=== PATIENT | female | born 1990 | race Caucasian/White ===

== ENCOUNTER 2023-06-01 09:53 | Emergency (ER) | payer BC, OTHER ==
--- NOTE | 2023-06-01 10:16 | ED ---
Recheck HPI - General Chief Complaint: Recheck/Abnormal Lab/Rx Stated Complaint: Elevated BP Time Seen by Provider: 06/01/23 10:03 Source: patient, RN notes reviewed Mode of arrival: ambulatory Limitations: no limitations - History of Present Illness Initial Comments: Patient is a 33-year-old female presenting to the ER with a chief complaint of hypertension. Patient was seen by PCP earlier this morning to be prescribed control and blood pressure was found to be elevated. Primary care physician sent her to ER for further evaluation. Patient is not taking any current antihypertensive medications. Patient denies any chest pain, shortness of breath, dizziness, lightheadedness, peripheral edema, urinary symptoms. - Related Data Home Medications Medication Instructions Recorded Confirmed Melatonin 5 mg PO HS PRN 05/14/14 02/29/16 Citalopram Hydrobromide [CeleXA] 40 mg PO DAILY 02/29/16 02/29/16 Previous Rx's Medication Instructions Recorded Azithromycin [Zithromax Z-pack (6 250 mg PO DIRECTED #6 tab 02/29/16 tabs)] Fluticasone Nasal [place] [Flonase 1 spray EA NOSTRIL DAILY PRN #1 02/29/16 Nasal [place]] bottle Allergies Allergy/AdvReac Type Severity Reaction Status Date / Time ibuprofen AdvReac Nausea & Verified 02/29/16 14:05 Vomiting Review of Systems ROS Statement: Those systems with pertinent positive or pertinent negative responses have been documented in the HPI. ROS Other: All systems not noted in ROS Statement are negative. Past Medical History Past Medical History: No Reported History Additional Past Medical History / Comment(s): GALLSTONES History of Any Multi-Drug Resistant Organisms: None Reported Past Surgical History: Adenoidectomy, Cholecystectomy, Tonsillectomy Past Anesthesia/Blood Transfusion Reactions: No Reported Reaction Past Psychological History: Anxiety, Depression Smoking Status: Former smoker Past Alcohol Use History: None Reported Past Drug Use History: None Reported General Exam Limitations: no limitations General appearance: alert, in no apparent distress Head exam: Present: atraumatic, normocephalic, normal inspection Eye exam: Present: normal appearance, PERRL, EOMI. Absent: scleral icterus, conjunctival injection, periorbital swelling ENT exam: Present: normal exam, normal oropharynx, mucous membranes moist, TM's normal bilaterally Neck exam: Present: normal inspection. Absent: tenderness, meningismus, lymphadenopathy Respiratory exam: Present: normal lung sounds bilaterally. Absent: respiratory distress, wheezes, rales, rhonchi, stridor Cardiovascular Exam: Present: regular rate, normal rhythm, normal heart sounds. Absent: systolic murmur, diastolic murmur, rubs, gallop, clicks Neurological exam: Present: alert, oriented X3, CN II-XII intact Psychiatric exam: Present: normal affect, normal mood Skin exam: Present: warm, dry, intact, normal color. Absent: rash Course Vital Signs 06/01/23 06/01/23 06/01/23 09:58 10:10 10:11 Temperature 98.4 F Pulse Rate 110 H Pulse Rate [ 107 H Pulse Oximetery ] Respiratory 16 Rate Blood Pressure 168/110 139/96 O2 Sat by Pulse 99 Oximetry 06/01/23 06/01/23 10:39 11:56 Temperature 97.9 F Pulse Rate 98 997 H Pulse Rate [ Pulse Oximetery ] Respiratory 18 Rate Blood Pressure 128/87 138/93 O2 Sat by Pulse 97 Oximetry Medical Decision Making - Medical Decision Making Was pt. sent in by a medical professional or institution (, PA, SSIS ARCHITECT, urgent care, hospital, or [facility]...) When possible be specific @ -No Did you speak to anyone other than the patient for history (EMS, parent, family, police, friend...)? What history was obtained from this source @ -No Did you review nursing and triage notes (agree or disagree)? Why? @ -I reviewed and agree with nursing and triage notes Were old charts reviewed (outside hosp., previous admission, EMS record, old EKG, old radiological studies, urgent care reports/EKG's, [facility] records)? Report findings @ -No old charts were reviewed Differential Diagnosis (chest pain, altered mental status, abdominal pain women, abdominal pain men, vaginal bleeding, weakness, fever, dyspnea, syncope, headache, dizziness, GI bleed, back pain, seizure, CVA, palpatations, mental health, musculoskeletal)? @ -Hypertension, hypertension emergency, hypertensive crisis, atypical chest pain this list is not meant to be all-inclusive. EKG interpreted by me (3pts min.). @ -As above X-rays interpreted by me (1pt min.). @ -None done CT interpreted by me (1pt min.). @ -None done U/S interpreted by me (1pt. min.). @ -None done What testing was considered but not performed or refused? (CT, X-rays, U/S, labs)? Why? @ -None What meds were considered but not given or refused? Why? @ -None Did you discuss the management of the patient with other professionals (professionals i.e. Dr., PA, SSIS ARCHITECT, lab, RT, psych nurse, social insurance adviser, waste elimination, teacher, lead security officer, case planner)? Give summary @ -No Was smoking cessation discussed for >3mins.? @ -No Was critical care preformed (if so, how long)? @ -No Were there social determinants of health that impacted care today? How? (Homelessness, low income, unemployed, alcoholism, drug addiction, transportation, low edu. Level, literacy, decrease access to med. care, fdc, rehab)? @ -No Was there de-escalation of care discussed even if they declined (Discuss DNR or withdrawal of care, Hospice)? DNR status @ -No What co-morbidities impacted this encounter? (DM, HTN, Smoking, COPD, CAD, Cancer, CVA, ARF, Chemo, Hep., AIDS, mental health diagnosis, sleep apnea, morbid obesity)? @ -Obese Was patient admitted / discharged? Hospital course, mention meds given and route, prescriptions, significant lab abnormalities, going to OR and other pertinent info. @ -Discharge. Patient is a 33-year-old female presenting to the ER with chief complaint of hypertension. Patient was sent in by PCP for further evaluation after in office BP was elevated. Upon evaluation as patient's blood pressure was 139/96. Patient was in no signs of acute distress and had no complaints at that time. EKG without signs of acute ischemia or infarct. Labs obtained in the ER unremarkable. Findings discussed with patient. Return parameters were discussed. Patient be discharged stable condition with follow-up to PCP. Patient expressed understanding and agreement with care plan. Undiagnosed new problem with uncertain prognosis? @ -No Drug Therapy requiring intensive monitoring for toxicity (Heparin, Nitro, Insulin, Cardizem)? @ -No Were any procedures done? @ -No Diagnosis/symptom? @ -Blood pressure check Acute, or Chronic, or Acute on Chronic? @ -Acute Uncomplicated (without systemic symptoms) or Complicated (systemic symptoms)? @ -Uncomplicated Side effects of treatment? @ -No Exacerbation, Progression, or Severe Exacerbation? @ -No Poses a threat to life or bodily function? How? (Chest pain, [place], [place], pneumonia, PE, COPD, DKA, ARF, appy, cholecystitis, CVA, Diverticulitis, Homicidal, Suicidal, threat to staff... and all critical care pts) @ -No - Lab Data Result diagrams: 06/01/23 10:56 06/01/23 10:56 Lab Results 06/01/23 06/01/23 Range/Units 10:56 10:56 WBC 9.7 (3.8-10.6) k/uL RBC 4.59 (3.80-5.40) m/uL Hgb 13.3 (11.4-16.0) gm/dL Hct 40.2 (34.0-46.0) % MCV 87.6 (80.0-100.0) fL MCH 29.0 (25.0-35.0) pg MCHC 33.1 (31.0-37.0) g/dL RDW 13.6 (11.5-15.5) % Plt Count 224 (150-450) k/uL MPV 8.3 Sodium 140 (137-145) mmol/L Potassium 4.4 (3.5-5.1) mmol/L Chloride 109 H (98-107) mmol/L Carbon Dioxide 20 L (22-30) mmol/L Anion Gap 11 mmol/L BUN 11 (7-17) mg/dL Creatinine 0.47 L (0.52-1.04) mg/dL Est GFR (CKD-EPI)AfAm >90 (>60 ml/min/1.73 sqM) Est GFR (CKD-EPI)NonAf >90 (>60 ml/min/1.73 sqM) Glucose 115 H (74-99) mg/dL Calcium 9.0 (8.4-10.2) mg/dL Total Bilirubin 0.6 (0.2-1.3) mg/dL AST 24 (14-36) U/L ALT 19 (4-34) U/L Alkaline Phosphatase 75 (38-126) U/L Total Protein 6.7 (6.3-8.2) g/dL Albumin 4.0 (3.5-5.0) g/dL - EKG Data -: EKG Interpreted by Me EKG Comments: EKG taken at 10: 27 shows sinus rhythm with no acute ST segment or T wave abnormalities. There is interventricular conduction delay. Ventricular rate 92, GA interval 157, QRS duration 168, QT/QTc 415/465. Disposition Clinical Impression: Blood pressure check Disposition: HOME SELF-CARE Condition: Stable Instructions (If sedation given, give patient instructions): Hypertension (ED) Additional Instructions: Please follow-up with PCP in the next 1 to 2 days. Return to ER for any new or worsening symptoms. Is patient prescribed a controlled substance at d/c from ED?: No Referrals: None,Stated [Primary Care Provider] - 1-2 days Time of Disposition: 11:49
[2023-06-01 11:20] LABS: HCT 40.2 % (34.0-46.0); HGB 13.3 gm/dL (11.4-16.0); MCHC 33.1 g/dL (31.0-37.0); MCV 87.6 fL (80.0-100.0); Mean Platelet Volume 8.3; Platelet Count 224 k/uL (150-450); RBC 4.59 m/uL (3.80-5.40); RDW 13.6 % (11.5-15.5); WBC 9.7 k/uL (3.8-10.6)
[2023-06-01 11:38] LABS: ALT 19 U/L (4-34); AST 24 U/L (14-36); African American GFR (CKD) >90 (>60 ml/min/1.73 sqM); Alkaline Phosphatase 75 U/L (38-126); Anion Gap 11 mmol/L; Blood Urea Nitrogen 11 mg/dL (7-17); Carbon Dioxide 20 mmol/L (22-30); Chloride 109 mmol/L (98-107); Glucose 115 mg/dL (74-99); Non-African American GFR(CKD) >90 (>60 ml/min/1.73 sqM); Potassium 4.4 mmol/L (3.5-5.1); Sodium 140 mmol/L (137-145); Total Bilirubin 0.6 mg/dL (0.2-1.3); Total Protein 6.7 g/dL (6.3-8.2)
[2023-06-01 12:26] VITALS: BP 138/93; PULSE 997; RESP 18; TEMP 97.9
== END 2023-06-01 11:59 | disposition home or self-care (01) ==
LOC: EC 09:53
DX: Z01.30 Encounter for examination of blood pressure without abnormal findings (principal); E66.9 Obesity, unspecified; F32.A Depression, unspecified; F41.9 Anxiety disorder, unspecified; Z79.899 Other long term (current) drug therapy; Z88.6 Allergy status to analgesic agent; Z87.891 Personal history of nicotine dependence; Z68.41 Body mass index [BMI] 40.0-44.9, adult
CPT/HCPCS: 36415; 80053; 85027; 93005; 99283

== ENCOUNTER → 2023-10-19 | Outpatient (CLI) | payer OTHER ==
--- NOTE | 2023-10-20 07:25 | CA ---
Transthoracic Echo Report Name: Jocelyne Echols Age: 33 Gender: F : 1990 Exam Date: 10/19/2023 14:55 Exam Location: [place] Echo Ht (in): 69 Wt (lb): 300 Ordering Physician: Ruddy Em DO Attending/Referring Phys: Kenyatta Gunn [facility] Shank Paperer Pamela Trevino RDCS Procedure CPT: Indications: R01.1 cardiac murmur Cardiac Hx: Technical Quality: Fair Contrast 1: Total Dose (mL): Contrast 2: Total Dose (mL): MEASUREMENTS (Male / Female) Normal Values 2D ECHO LV Diastolic Diameter PLAX 6.8 cm 4.2 - 5.9 / 3.9 - 5.3 cm LV Systolic Diameter PLAX 5.9 cm IVS Diastolic Thickness 0.9 cm 0.6 - 1.0 / 0.6 - 0.9 cm LVPW Diastolic Thickness 1.1 cm 0.6 - 1.0 / 0.6 - 0.9 cm LV Relative Wall Thickness 0.3 RV Internal Dim ED PLAX 3.2 cm LA Systolic Diameter LX 3.9 cm 3.0 - 4.0 / 2.7 - 3.8 cm LV Diastolic Volume MOD BP 190.6 cm??? 67 - 155 / 56 - 104 cm??? LV Systolic Volume MOD BP 132.8 cm??? 22 - 58 / 19 - 49 cm??? LV Ejection Fraction MOD BP 30.4 % >= 55 % LV Cardiac Index MOD BP 2300.4 cm???/min???m??? LV Diastolic Volume MOD 4C 206.3 cm??? LV Systolic Volume MOD 4C 158.8 cm??? LV Ejection Fraction MOD 4C 23.0 % LV Cardiac Index MOD 4C 1888.6 cm???/min???m??? LV Diastolic Length 4C 8.0 cm LV Systolic Length 4C 7.2 cm LV Diastolic Volume MOD 2C 202.1 cm??? LV Systolic Volume MOD 2C 146.5 cm??? LV Ejection Fraction MOD 2C 27.5 % LV Cardiac Index MOD 2C 2207.1 cm???/min???m??? LV Diastolic Length 2C 8.3 cm LV Systolic Length 2C 7.5 cm M-MODE Aortic Root Diameter MM 2.9 cm LA Systolic Diameter MM 2.1 cm LA Ao Ratio MM 0.7 DOPPLER AV Peak Velocity 151.5 cm/s AV Peak Gradient 9.2 mmHg MV Peak Velocity 201.0 cm/s MV Peak Gradient 16.2 mmHg MV Mean Velocity 88.6 cm/s MV Mean Gradient 4.4 mmHg MV Velocity Time Integral 29.8 cm MR Peak Velocity 450.4 cm/s MR Peak Gradient 81.1 mmHg Mitral E Point Velocity 166.5 cm/s Mitral A Point Velocity 55.4 cm/s Mitral E to A Ratio 3.0 MV Deceleration Time 97.2 ms MV E' Velocity 10.6 cm/s Mitral E to MV E' Ratio 15.7 TR Peak Velocity 269.2 cm/s TR Peak Gradient 29.0 mmHg Right Ventricular Systolic Press 39.0 mmHg FINDINGS Left Ventricle Left ventricular ejection fraction is estimated at 15-20 %. Mildly increased posterior wall thickness. Severely increased left ventricular diastolic diameter. Severely increased left ventricular diastolic volume. Severely increased left ventricular systolic volume. Severly decreased left ventricular ejection fraction. Right Ventricle Normal right ventricular size and function. Mild pulmonary hypertension. Right Atrium Normal right atrial size. No right atrial thrombus or mass seen. Left Atrium Mild LA enlargement no left atrial thrombus or mass present. Mitral Valve Structurally normal mitral valve. Moderate mitral regurgitation. Aortic Valve Trileaflet aortic valve. No aortic valve stenosis or regurgitation. Tricuspid Valve Structurally normal tricuspid valve. Mild tricuspid regurgitation. Pulmonic Valve Structurally normal pulmonic valve. Trace pulmonic regurgitation. Pericardium No pericardial effusion. Aorta Normal size aortic root and proximal ascending aorta. CONCLUSIONS Severely impaired LV function with EF between 15 to 20% Moderate mitral regurgitation Previewed by: Dr. Pritesh Price MD (Electronically Signed) Final Date: 20 October 2023 07:24
== END | disposition home or self-care (01) ==
LOC: RADECHMAIN 14:46
PROVIDERS: ATTEND Family Medicine
DX: I34.0 Nonrheumatic mitral (valve) insufficiency (principal); R01.1 Cardiac murmur, unspecified
CPT/HCPCS: 93306

== ENCOUNTER 2023-11-27 05:40 | Day surgery (SDC) | payer OTHER ==
[2023-11-23 15:38] VITALS: BMI 41.0
[~2023-11-27 05:40] MED LIST: ALPRAZolam 0.25 MG TAB PO PRN; ATORVASTATIN 80 MG TAB PO STA; NITROGLYCERIN SL TABS 0.4 MG TAB SUBLINGUAL PRN
[2023-11-27] MEDS: SODIUM CHLORIDE 0.9% 1,000 ML IV ONE (06:03)
[2023-11-27] MEDS: SODIUM CHLORIDE 0.9% 1,000 ML in EMPTY BAG 1 BAG IV SCH (06:13)
[2023-11-27] MEDS: ASPIRIN 325 MG TAB PO STA (06:13)
[2023-11-27] MEDS: ALPRAZolam 0.5 MG TAB PO PRN (06:14)
[2023-11-27 06:22] LABS: Glucose,Whole Blood 136 mg/dL (70-110)
[2023-11-27 06:28] LABS: Basophils # (A) 0.1 k/uL (0-0.2); Basophils % (A) 1 %; Eosinophils # (A) 0.2 k/uL (0-0.7); Eosinophils % (A) 2 %; HCT 45.9 % (34.0-46.0); HGB 14.7 gm/dL (11.4-16.0); Hypochromasia Slight; Lymphocytes # (A) 3.3 k/uL (1.0-4.8); Lymphocytes % (A) 33 %; MCV 87.4 fL (80.0-100.0); Mean Platelet Volume 7.8; Monocytes # (A) 0.4 k/uL (0-1.0); Monocytes % (A) 4 %; Neutrophils # (A) 5.9 k/uL (1.3-7.7); Neutrophils % (A) 59 %; Platelet Count 285 k/uL (150-450); RBC 5.25 m/uL (3.80-5.40); RDW 13.9 % (11.5-15.5)
[2023-11-27 06:29] VITALS: RESP 16; TEMP 98.6
[2023-11-27 06:42] LABS: African American GFR (CKD) >90 (>60 ml/min/1.73 sqM); Anion Gap 11 mmol/L; Blood Urea Nitrogen 14 mg/dL (7-17); Calcium 9.8 mg/dL (8.4-10.2); Carbon Dioxide 17 mmol/L (22-30); Chloride 110 mmol/L (98-107); Glucose 132 mg/dL (74-99); Non-African American GFR(CKD) >90 (>60 ml/min/1.73 sqM); Potassium 4.7 mmol/L (3.5-5.1); Sodium 138 mmol/L (137-145)
[2023-11-27] MEDS ORDERED: HEPARIN SODIUM 1,000 UN/ML (10ML VL) ONE (07:32)
[2023-11-27] MEDS: MIDAZOLAM 2 MG/2 ML VIAL IVP ONE (07:39)
[2023-11-27] MEDS: LIDOCAINE 1% INJ 10MG/ML (20 ML MDV) SQ ONE (07:39)
[2023-11-27] MEDS: VERAPAMIL SYRINGE (5 MG/10 ML) INTRAARTER ONE (07:43)
[2023-11-27] MEDS ORDERED: fentaNYL (PF) 50 MCG/ML 2 ML AMP ONE (07:44)
[2023-11-27] MEDS: fentaNYL (PF) 50 MCG/1 ML VIAL IVP ONE (07:47)
[2023-11-27] MEDS: HEPARIN SODIUM 1,000 UN/ML (10ML VL) IVP ONE (07:47)
[2023-11-27] MEDS: HEPARIN SODIUM,PORCINE 10,000 UNIT in SODIUM CHLORIDE 0.9% 1,000 ML IRRIGATION PRN (07:52)
[2023-11-27] MEDS: HEPARIN SODIUM,PORCINE (1 ML) 2,500 UNIT in SODIUM CHLORIDE 0.9% 250 ML IRRIGATION PRN (07:52)
[2023-11-27] MEDS ORDERED: RX INFO: IV CONTRAST WAS GIVEN 1 EACH MISC MISCELLANE PRN (07:57)
[2023-11-27] MEDS ORDERED: SODIUM CHLORIDE 0.9% 1,000 ML IV SCH (08:00)
[2023-11-27] MEDS: IOPAMIDOL-370 100ML BTL INJ ONE (08:03)
--- NOTE | 2023-11-27 08:03 | P.PCN ---
Date of Procedure: 11/27/23 Operative Findings: CARDIAC CATHETERIZATION PERFORMING PHYSICIAN: Pritesh Price MD, RPVI PROCEDURE PERFORMED: 1. Selective right and left coronary angiogram 2. Left heart catheterization 3. Ultrasound-guided access of the right radial artery INDICATION: Newly diagnosis cardiomyopathy COMPLICATION: None APPROACH: Right radial artery LEVEL OF SEDATION: Moderate with a sedation length of 16 minutes PROCEDURE DESCRIPTION: After obtaining an informed consent, the patient was brought to cardiac cork slabs sawyer. Local anesthesia was performed using lidocaine subcutaneously. The right radial artery was cannulated using Seldinger technique, the guidewire passed easily, following that we advanced a 5-Maldivian sheath dilator assembly, the wire and dilator were removed and sheath was flushed. Following that, 2 mg of verapamil along with 5000 unit heparin were given. Selective right and left coronary angiogram using a 6-Maldivian JR4 and JL 3.5 catheters. Following that we did left heart catheterization using 6-Maldivian pigtail catheter. The procedure was completed there was no complication. SELECTIVE CORONARY ANGIOGRAM: The right coronary artery: Large-caliber vessel a dominant vessel is angiographically normal but distally bifurcates into PDA and PLV branches Left main: Is angiographically normal The left circumflex: Large caliber vessel codominant vessel also appears to be angiographically normal and gives rise into an OM branch which seems to be normal The left anterior descending artery: Large-caliber vessel. The proximal LAD has disease appears to be in the range of 30 to 40%. The mid and distal LAD are angiographically normal. HEMODYNAMICS: The LVEDP was 23 mmHg with no significant gradient was identified across aortic valve CONCLUSION: 1. Mild to moderate nonobstructive CAD 2. Elevated left-sided filling pressure POSTPROCEDURE MANAGEMENT: Medical treatment
[2023-11-27 17:02] VITALS: BP 115/63; PULSE 87
== END 2023-11-27 12:37 | disposition home or self-care (01) ==
LOC: CATHCVL 05:40
PROVIDERS: ATTEND Internal Medicine Interventional Cardiology
DX: I42.9 Cardiomyopathy, unspecified (principal); I25.10 Atherosclerotic heart disease of native coronary artery without angina pectoris; I10 Essential (primary) hypertension; E66.3 Overweight; G47.30 Sleep apnea, unspecified; Z79.899 Other long term (current) drug therapy
CPT/HCPCS: 93458; 80048; 85025; 81025; 99152; C1769; C1894; J2250; J1644 ×3; J2001; Q9967; J3010

== ENCOUNTER 2024-10-08 11:29 | Inpatient (IN) | payer OTHER ==
[2024-10-04 11:55] VITALS: BMI 41.7
[~2024-10-08 11:29] MED LIST changes: -ALPRAZolam 0.25 MG TAB PO PRN; -ATORVASTATIN 80 MG TAB PO STA; +HYDROmorphone 0.5 MG/0.5 ML SYRINGE IVP PRN; +MIDAZOLAM 2 MG/2 ML VIAL IV PRN; -NITROGLYCERIN SL TABS 0.4 MG TAB SUBLINGUAL PRN
[2024-10-08 13:06] LABS: Basophils # (A) 0.05 10*3/uL (0.00-0.10); Basophils % (A) 0.5 %; Eosinophils # (A) 0.09 10*3/uL (0.04-0.35); Eosinophils % (A) 0.9 %; HCT 43.7 % (37.2-46.3); HGB 14.3 g/dL (12.0-15.0); Lymphocytes % (A) 22.7 %; MCH 29.3 pg (27.0-32.0); MCHC 32.7 g/dL (32.0-37.0); MCV 89.5 fL (80.0-97.0); Mean Platelet Volume 10.2 fL (9.5-12.2); Monocytes # (A) 0.51 10*3/uL (0.20-1.00); Neutrophils # (A) 7.16 10*3/uL (1.80-7.70); Neutrophils % (A) 70.6 %; Platelet Count 230 10*3/uL (140-440); RBC 4.88 10*6/uL (4.10-5.20); RDW 13.8 % (11.5-14.5); WBC 10.14 10*3/uL (4.50-10.00)
[2024-10-08 13:25] LABS: African American GFR (CKD) >90 (>60 ml/min/1.73 sqM); Anion Gap 9 mmol/L; Blood Urea Nitrogen 9 mg/dL (7-17); Calcium 9.7 mg/dL (8.4-10.2); Carbon Dioxide 26 mmol/L (22-30); Chloride 109 mmol/L (98-107); Glucose 104 mg/dL (74-99); Non-African American GFR(CKD) >90 (>60 ml/min/1.73 sqM); Sodium 144 mmol/L (137-145)
[2024-10-08 13:52] LABS: Potassium 4.7 mmol/L (3.5-5.1)
[2024-10-08] MEDS ORDERED: PROPOFOL 10 MG/ML 20 ML VIAL IV ONE (15:44)
[2024-10-08] MEDS ORDERED: fentaNYL (PF) 50 MCG/ML 2 ML AMP ONE (15:44)
[2024-10-08] MEDS ORDERED: PHENYLEPHRINE-0.9% NACL SYG 1,000 MCG/10 ML SYRINGE ONE (15:44)
[2024-10-08] MEDS ORDERED: MIDAZOLAM 2 MG/2 ML VIAL ONE (15:44)
[2024-10-08] MEDS ORDERED: ETOMIDATE 2 MG/ML 10 ML VIAL ONE (15:44)
[2024-10-08] MEDS: IV FLUID CONTINUATION 500 ML IV ONE (15:44)
[2024-10-08] MEDS: ceFAZolin 2 GM in DEXTROSE 5% IN WATER 50 ML IVPB PRN (16:22)
[2024-10-08] MEDS: ROPIVACAINE 5 MG/ML 30 ML VIAL MISCELLANE ONE (16:30)
[2024-10-08] MEDS: LIDOCAINE 1% INJ 10MG/ML (20 ML MDV) SQ ONE (16:30)
[2024-10-08] MEDS: ceFAZolin 1 GM in SODIUM CHLORIDE 0.9% IRRIG BTL 250 ML IRRIGATION PRN (16:33)
[2024-10-08] MEDS: HEPARIN SODIUM,PORCINE (1 ML) 2,500 UNIT in SODIUM CHLORIDE 0.9% 250 ML IRRIGATION ONE (16:35)
[2024-10-08] MEDS: LACTATED RINGERS 1,000 ML IV ONE (17:15)
--- NOTE | 2024-10-08 19:10 | P.EPPROC ---
- EP Procedure Note Electrophysiology Procedure Note: Diagnosis Cardiomyopathy, chronic, nonischemic, left ventricular ejection fraction 30-35%, no delayed enhancement on cardiac MRI Congestive heart failure [place] [employer] class 2 Wide QRS left bundle branch block morphology QRS width of, 81 ms, IA interval of 187 ms On guide line directed medical treatment for greater than 3 months Procedure: Biventricular ICD implantation for management of risk of sudden cardiac and congestive heart failure Result: Successful biventricular ICD implantation, chronic cobalt XT heart failure Atrial lead: 58 cm model #5076, P waves 2.1 mV pacing impedance 456 ohms and pacing threshold 0.5 V at 0.4 ms RV ICD lead: Single coil Medtronic ICD model number 6935M, 62 cm in length. R waves 15.6 mV, pacing impedance 456 ohms, high-voltage impedance 68 ohms and pacing threshold 0.5 V at 0.4 ms LB lead in LV port. Unipolar pacing impedance 634 ohms pacing threshold 0.5 V at 0.4 ms With unipolar left bundle pacing Right bundle branch block morphology of the paced beats. Activation time in V6 63 ms, activation time in lead 169 ms In comparison ring to coil pacing showed activation times of 135 ms in lead V6 and lead I Plan Increase metoprolol succinate to 50 mg twice daily to allow for preferential left ventricular activation with LB pacing continue other heart failure medications Procedure details: Patient was brought to the EP lab in a fasting state. Written informed consent was obtained prior to the procedure. Options, pros and cons, benefits and risks and complications discussed with patient in detail prior to the procedure (shared decision making) previously. Importance of continuing medical treatment emphasized previously. Alternatives discussed previously. Left upper extremity venogram performed. 15 mL IV dye injected in the left arm. Patent axillary/subclavian vein The left pectoral area was prepped and draped as a protocol. IV antibiotics administered 1% lidocaine was used for local anesthesia. A 4 cm incision was made parallel to the deltopectoral groove, about 1.5 cm medial to it. The in cision was carried down to the level of the pectoralis muscle and the subfascial pocket was made. Hemostasis was assured. The axillary vein access was obtained. Appropriately sized into to see sheaths were placed. ICD lead implanted in the right ventricle and screwed in. ICD lead tested for threshold, sensing, impedances and tested with high output pacing for diaphragmatic stimulation. Negative diaphragmatic stimulation Atrial lead placed in the right atrial appendage and tested for threshold, sensing, impedance, and tested with high output pacing. Phrenic nerve stimulation negative Left bundle lead placed successfully with right bundle branch block paced pattern with rapid activation time of 63 ms in V6 Leads secured to the underlying pectoral muscle after removing sheaths . Pocket irrigated with antibiotic solution. Antibiotic pouch placed Leads connected to the biventricular ICD generator. Wound closed in 3 layers and dressed per protocol Biventricular ICD interrogated and programmed. Appropriate pacing parameters, antitachycardia therapies with antitachycardia pacing cardioversion defibrillations programmed. AV delay and biventricular pacing parameters programmed to achieve optimal physiologic pacing Patient tolerated the procedure well without any acute complications. See scanned device report in EMR for lead details
--- NOTE | 2024-10-08 19:12 | P.PRLE ---
RE: EcholsJocelyne Dear Kenyatta Ms. Echols underwent biventricular ICD implantation for severe nonischemic cardiomyopathy despite medical treatment in the setting of a left bundle branch block pattern on twelve-lead EKG consistent with electromechanical dyssynchrony In order for the biventricular ICD to provide maximum benefit it is essential to slow down intrinsic AV node conduction to allow for preferential LV activation via the left bundle pacing lead. Therefore I have increased the dose of metoprolol succinate to 50 mg twice daily. She will continue all of her other medications as before. Thank you for entrusting me with the care of the patient Warm regards Sincerely Braydon Ace
[2024-10-08] MEDS: LACTATED RINGERS 1,000 ML IV SCH (21:14)
[2024-10-08] MEDS: SODIUM CHLORIDE 0.9% 1,000 ML IV SCH (21:14)
[2024-10-08] MEDS: ceFAZolin 2 GM in DEXTROSE 5% IN WATER 50 ML IVPB SCH (21:21)
[2024-10-08] MEDS: METOPROLOL SUCCINATE (ER) 50 MG TAB.ER.24H PO STA (21:22)
[2024-10-08] MEDS: SACUBITRIL/VALSARTAN 24 MG-26 MG TABLET PO SCH (21:22)
[2024-10-08] MEDS: ACETAMINOPHEN IV (For NPO) 1,000 MG in EMPTY BAG 1 BAG IVPB ONE (21:22)
[2024-10-09] MEDS: ACETAMINOPHEN TAB 325 MG TAB PO PRN (04:26)
--- NOTE | 2024-10-09 08:12 | XR ---
EXAMINATION TYPE: XR chest 2V DATE OF EXAM: 10/09/2024 7:08 AM COMPARISON: None CLINICAL INDICATION: Female, 34 years old with history of Lead placement check; [facility] TECHNIQUE: XR chest 2V Frontal and lateral views of the chest. FINDINGS: Lungs/Pleura: There is no evidence of pleural effusion, focal consolidation, or pneumothorax. Pulmonary vascularity: Unremarkable. Heart/mediastinum: Cardiomediastinal silhouette is unremarkable. Three lead cardiac conduction device overlying the left hemithorax with lead tips projecting over the right ventricle, right atrium and c oronary sinus. Musculoskeletal: No acute osseous pathology. Other findings: None IMPRESSION: No acute cardiopulmonary disease/process. [facility], , 10/09/2024 8:10 AM
[2024-10-09] MEDS: SPIRONOLACTONE 25 MG TAB PO SCH (08:42)
[2024-10-09] MEDS: SERTRALINE 100 MG TAB PO SCH (08:42)
[2024-10-09] MEDS: METOPROLOL SUCCINATE (ER) 100 MG TAB.ER.24H PO SCH (08:42)
[2024-10-09] MEDS: DAPAGLIFLOZIN PROPANEDIOL 5 MG TABLET PO SCH (08:42)
[2024-10-09] MEDS ORDERED: METOPROLOL SUCCINATE (ER) 50 MG TAB.ER.24H PO SCH (09:00)
[2024-10-09 14:56] LABS: Basophils # (A) 0.04 10*3/uL (0.00-0.10); Basophils % (A) 0.4 %; Eosinophils # (A) 0.04 10*3/uL (0.04-0.35); Eosinophils % (A) 0.4 %; HCT 41.8 % (37.2-46.3); HGB 13.5 g/dL (12.0-15.0); Lymphocytes # (A) 2.16 10*3/uL (0.90-5.00); Lymphocytes % (A) 20.1 %; MCH 29.3 pg (27.0-32.0); MCHC 32.3 g/dL (32.0-37.0); MCV 90.7 fL (80.0-97.0); Mean Platelet Volume 10.3 fL (9.5-12.2); Monocytes # (A) 0.55 10*3/uL (0.20-1.00); Monocytes % (A) 5.1 %; Neutrophils # (A) 7.93 10*3/uL (1.80-7.70); Neutrophils % (A) 73.7 %; Platelet Count 211 10*3/uL (140-440); RBC 4.61 10*6/uL (4.10-5.20); RDW 13.8 % (11.5-14.5); WBC 10.75 10*3/uL (4.50-10.00)
[2024-10-09 15:07] LABS: African American GFR (CKD) >90 (>60 ml/min/1.73 sqM); Anion Gap 9 mmol/L; Blood Urea Nitrogen 6 mg/dL (7-17); Calcium 9.6 mg/dL (8.4-10.2); Carbon Dioxide 22 mmol/L (22-30); Chloride 108 mmol/L (98-107); Glucose 106 mg/dL (74-99); Non-African American GFR(CKD) >90 (>60 ml/min/1.73 sqM); Sodium 139 mmol/L (137-145)
[2024-10-09] MEDS: SODIUM CHLORIDE 0.9% 1,000 ML IV SCH (17:06)
--- NOTE | 2024-10-09 18:46 | CA ---
Transthoracic Echo Report Name: Jocelyne Echols Age: 34 Gender: F : 1990 Exam Date: 10/09/2024 14:23 Exam Location: [place] Echo Ht (in): 70 Wt (lb): 285 Ordering Physician: Braydon Ace MD ([id number]) Attending/Referring Phys: Plan Examiner Pamela Trevino RDCS Procedure CPT: Indications: pericardial effusion Cardiac Hx: Technical Quality: Technically difficult study Contrast 1: Definity Total Dose (mL): 2 Contrast 2: Total Dose (mL): MEASUREMENTS (Male / Female) Normal Values 2D ECHO LV Diastolic Diameter PLAX 5.2 cm 4.2 - 5.9 / 3.9 - 5.3 cm LV Systolic Diameter PLAX 3.8 cm IVS Diastolic Thickness 1.2 cm 0.6 - 1.0 / 0.6 - 0.9 cm LVPW Diastolic Thickness 1.2 cm 0.6 - 1.0 / 0.6 - 0.9 cm LV Relative Wall Thickness 0.5 RV Internal Dim ED PLAX 3.7 cm LA Systolic Diameter LX 4.0 cm 3.0 - 4.0 / 2.7 - 3.8 cm LV Diastolic Volume MOD BP 159.4 cm??? 67 - 155 / 56 - 104 cm??? LV Systolic Volume MOD BP 107.3 cm??? - / 19 - 49 cm??? LV Ejection Fraction MOD BP 32.7 % >= 55 % LV Cardiac Index MOD BP 1271.1 cm???/min???m??? LV Diastolic Volume MOD 4C 153.4 cm??? LV Systolic Volume MOD 4C 110.2 cm??? LV Ejection Fraction MOD 4C 28.2 % LV Cardiac Index MOD 4C 1054.7 cm???/min???m??? LV Diastolic Length 4C 8.1 cm LV Systolic Length 4C 7.7 cm LV Diastolic Volume MOD 2C 166.1 cm??? LV Systolic Volume MOD 2C 98.2 cm??? LV Ejection Fraction MOD 2C 40.9 % LV Cardiac Index MOD 2C 1656.6 cm???/min???m??? LV Diastolic Length 2C 8.1 cm LV Systolic Length 2C 7.1 cm LA Volume 90.0 cm??? - / 22 - 52 cm??? LA Volume Index 34.8 cm???/m??? 16 - 28 cm???/m??? M-MODE Aortic Root Diameter MM 3.2 cm LA Systolic Diameter MM 4.6 cm LA Ao Ratio MM 1.4 AV Cusp Separation MM 2.2 cm DOPPLER AV Peak Velocity 146.1 cm/s AV Peak Gradient 8.5 mmHg FINDINGS Left Ventricle Left ventricular ejection fraction is estimated at 30-35 %. Left ventricular cavity size normal. Mildly increased left ventricular wall thickness. Severe global hypokinesis Right Ventricle Right ventricular dilatation. Unable to estimate the right ventricular systolic pressure. A wire is noted in the right ventricle Right Atrium Right atrium not well visualized. Left Atrium Mildly increased left atrial diameter. Moderately increased left atrial volume. Mildly increased left atrial area. No left atrial thrombus or mass present. Mitral Valve Structurally normal mitral valve. No evidence for mitral valve prolapse. No mitral stenosis. Mild mitral regurgitation. Aortic Valve Aortic valve not well visualized. No aortic valve stenosis or regurgitation. Tricuspid Valve Tricuspid valve not well visualized. Mild tricuspid regurgitation. Pulmonic Valve Pulmonic valve not well visualized. No pulmonic regurgitation. Pericardium No pericardial effusion. Aorta Normal size aortic root and proximal ascending aorta. CONCLUSIONS Technically difficult study. Definity ECHO contrast used for improved visualization of the endocardial borders (inadequate visualization of two or more contiguous segments). Severe global hypokinesis of the left ventricle Limited Doppler study with mild mitral and tricuspid regurgitation No evidence of pericardial effusion Previewed by: Dr. Neeraj Solorzano MD (Electronically Signed) Final Date: 09 October 2024 18:46
[2024-10-09] MEDS: METOPROLOL SUCCINATE (ER) 50 MG TAB.ER.24H PO SCH (21:20)
[2024-10-10] MEDS: MELATONIN 3 MG TABLET PO SCH (02:47)
[2024-10-10 06:24] LABS: Glucose,Whole Blood 113 mg/dL (70-110)
[2024-10-10] MEDS: VANCOMYCIN 1,250 MG in SODIUM CHLORIDE 0.9% 250 ML IVPB STA (13:53)
[2024-10-10] MEDS: IOPAMIDOL-370 100ML BTL INJ ONE (14:53)
[2024-10-10] MEDS: IV FLUID CONTINUATION 1,000 ML IV ONE (15:52)
[2024-10-10] MEDS ORDERED: ROCURONIUM 10 MG/ML (5 ML VIAL) IV ONE (16:29)
[2024-10-10] MEDS ORDERED: NEOSTIGMINE 1 MG/ML 10 ML VIAL ONE (16:29)
[2024-10-10] MEDS ORDERED: PROPOFOL 10 MG/ML 20 ML VIAL IV ONE (16:29)
[2024-10-10] MEDS ORDERED: HYDROmorphone (PF) 1 MG/ML ONE (16:29)
[2024-10-10] MEDS ORDERED: SUCCINYLCHOLINE CHLORIDE 200 MG/10 ML VIAL IV ONE (16:29)
[2024-10-10] MEDS ORDERED: LIDOCAINE 1% INJ 10MG/ML (20 ML MDV) ONE (16:29)
[2024-10-10] MEDS ORDERED: MIDAZOLAM 2 MG/2 ML VIAL ONE (16:29)
[2024-10-10] MEDS ORDERED: fentaNYL (PF) 50 MCG/ML 2 ML AMP ONE (16:29)
[2024-10-10] MEDS ORDERED: ePHEDrine 50 MG/ML 1 ML VIAL ONE (16:29)
[2024-10-10] MEDS ORDERED: PHENYLEPHRINE-0.9% NACL SYG 1,000 MCG/10 ML SYRINGE ONE (16:29)
[2024-10-10] MEDS ORDERED: GLYCOPYRROLATE 0.2 MG/ML 2 ML VIAL ONE (16:29)
[2024-10-10] MEDS: WATER IVPB ONE (17:10)
[2024-10-10] MEDS: CEFAZOLIN IVPB ONE (17:10)
[2024-10-10] MEDS: DEXTROSE 5% IVPB ONE (17:10)
[2024-10-10] MEDS: LIDOCAINE 1% INJ 10MG/ML (20 ML MDV) SQ ONE (17:20)
[2024-10-10] MEDS: ROPIVACAINE 5 MG/ML 30 ML VIAL MISCELLANE ONE (17:20)
[2024-10-10] MEDS ORDERED: ACETAMINOPHEN TAB 325 MG TAB PO PRN (18:32)
--- NOTE | 2024-10-10 18:46 | P.EPPROC ---
- EP Procedure Note Electrophysiology Procedure Note: Diagnosis Significant lead pull with dislodgment of the atrial lead Significant lead pull with complete dislodgment of the ICD lead Status post implant of a biventricular ICD 2 days back for severe nonischemic cardiomyopathy, left bundle branch block pattern on twelve-lead EKG and congestive heart failure, on guideline directed medical treatment Details Patient was brought to the EP lab in a fasting state. Written informed consent was obtained prior to the procedure. IV vancomycin was administered prior to the procedure. General anesthesia was provided. The left pectoral area was prepped and draped as a protocol. 1% lidocaine was used for local anesthesia. Subsequently Was Given. An Incision Was Made Directly of the Previous Surgical Site and Carried down to the Level of the Generator. The Generator Was Explanted All Leads Were Securely Sutured to the Pectoralis Muscle. Cinefluoroscopy Revealed That the Right Atrial Lead Was Free-Floating in the Right Atrium and the ICD Lead Was Also Free-Floating in the Right Ventricle. As Compared to Yesterday's Cinefluoroscopy and Today Cinefluoroscopy There Was a Big Difference in the RV Lead Position Consistent with a Completely Free-Floating ICD Lead The Left Bundle Lead Appeared Secure and Thresholds Were Excellent and the Heel Was Adequate. Therefore the Left Bundle Lead Was Left Untouched The Right Atrial Lead Was Freed, Unscrewed and Then Repositioned with Excellent P Waves of between 3 to 5 mV with Good Current of Injury and Appears Impedance of 418 Ohms and Pacing Threshold of 0.75 V at 0.4 Ms. Adequate Heel Was Provided in the Right Atrium. The ICD Lead Was Freed from the Pectoralis Muscle, Unscrewed and Then Repositioned in the Low RV Septum. Excellent Current of Injury, R Waves 20 mV, Pace Impedance 494 Ohms and High-Voltage Impedance 67 Ohms. Threshold 0.75 V at 0.4 Ms. Amarilis Test Is Negative for Both Leads The Left Bundle Lead Was Then Interrogated and Right Bundle Branch Block Pattern of the Paced Beat Was Obtained with an Activation Time in Lead V6 of 65 ms The heel seemed adequate and therefore this lead was not touched The pocket was irrigated with antibiotic solution and new antibiotic pouch was placed the leads and the generator was in place and subfascial pocket A tug test was performed at the level of the pectoralis muscle suture and for the connection with the ICD lead. The ICD was secured to the pectoralis muscle with nonabsorbable suture. The wound was closed in 3 layers and dressed per protocol The arm was then secured with an orthopedic sling patient tolerated procedure well without any acute complication
[2024-10-10] MEDS: ACETAMINOPHEN IV (For NPO) 1,000 MG in EMPTY BAG 1 BAG IVPB ONE (20:54)
[2024-10-10] MEDS: METOPROLOL SUCCINATE (ER) 100 MG TAB.ER.24H PO SCH (22:01)
[2024-10-10] MEDS: DIGOXIN 125 MCG TAB PO SCH (22:01)
[2024-10-10] MEDS: ceFAZolin 2 GM in DEXTROSE 5% IN WATER 50 ML IVPB SCH (22:08)
[2024-10-11 02:03] VITALS: RESP 18
[2024-10-11 07:55] VITALS: BP 125/73; PULSE 60; TEMP 98.4
[2024-10-11] MEDS: SODIUM CHLORIDE 0.9% 1,000 ML IV SCH (09:06)
--- NOTE | 2024-10-11 10:54 | P.DS ---
Providers Date of admission: 10/08/24 11:30 Attending physician: Braydon Ace Primary care physician: [facility] Course: Patient is resting comfortably in bed today No chest discomfort dizziness or lightheadedness The local ICD site is healed well She was admitted for management of severe cardiomyopathy heart failure and left bundle branch block pattern on twelve-lead EKG and she underwent a BiV ICD implantation She was thrashing around after the first procedure and she had a significant lead dislodgment of both the right atrial lead and the ICD lead. The left bundle lead was stable Subsequently yesterday under general anesthesia the right atrial lead and the ICD lead was repositioned The ICD lead was positioned in the low RV septum with excellent current of injury and thresholds and sensing The right atrial lead was positioned at a different position a little more laterally with good current of injury excellent sensing of between 3 to 5 mV and excellent pacing threshold Unclear 2 AM in the morning device function is normal However this morning on interrogation the atrial lead and noncapture with ventricular signals consistent with lead dislodgment This was confirmed on cinefluoroscopy in the EP lab. The ICD lead in the left bundle lead are in excellent position The device was reprogrammed to VVI 40 mode with backup defibrillation I discussed this with the patient I would bring her back for a redo procedure under general anesthesia and implant either a tined lead/fixed J curve or 3830-lead screwed in the septum Patient Nonischemic cardiomyopathy with a left bundle branch block pattern Increase metoprolol to 100 mg twice daily Start digoxin Continue other current medications I will schedule the procedure for her within the next 1 to 2 weeks Plan - Discharge Summary Discharge Rx Participant: Yes New Discharge Prescriptions: New Metoprolol Succinate (ER) [Toprol XL] 100 mg PO BID #180 tab Digoxin [Lanoxin] 125 mcg PO DAILY #90 tab Discontinued Metoprolol Succinate (ER) [Toprol XL] 25 mg PO DAILY No Action Spironolactone 25 mg PO DAILY Sacubitril/Valsartan [Entresto 24 mg-26 mg Tablet] 1 each PO BID Sertraline [Zoloft] 100 mg PO DAILY Empagliflozin [Jardiance] 10 mg PO DAILY Discharge Medication List Empagliflozin [Jardiance] 10 mg PO DAILY 11/23/23 [History] Sertraline [Zoloft] 100 mg PO DAILY 11/23/23 [History] Spironolactone 25 mg PO DAILY 11/23/23 [History] Sacubitril/Valsartan [Entresto 24 mg-26 mg Tablet] 1 each PO BID 10/04/24 [History] Digoxin [Lanoxin] 125 mcg PO DAILY #90 tab 10/10/24 [Rx] Metoprolol Succinate (ER) [Toprol XL] 100 mg PO BID #180 tab 10/10/24 [Rx] Follow up Appointment(s)/Referral(s): Braydon Ace MD [STAFF PHYSICIAN] - 10/21/24 9:00 am (FOLLOW UP APPOINTMENT IS MADE WITH DEVICE CLINIC. ) Activity/Diet/Wound Care/Special Instructions: PATIENT EDUCATION MATERIAL Instructions following a heart rhythm device implant. 1. Keep dressing DRY for 5 DAYS. You may cover the area with Saran or Cling Wrap, prior to a shower. 2. The dressing will be removed in the Device Clinic at [facility]. Absorbable sutures were used to close the wound. 3. Avoid raising the left arm above the shoulder level. 4 week restriction 4. Avoid arm movements, like backscratching, rubbing the head, or pulling on a cord. 4 weeks restriction 5. Gentle range of motion movements of the shoulder, closest to the incision should be performed to avoid a frozen shoulder. (Pendulum exercises of the shoulder) 6. The opposite arm may be used freely. 7. Avoid driving for 7 days. 8. Avoid activities such as golfing, swimming, weed whacking, lifting more than 10 pounds weight, bowling, gymnastics and weight training/lifting. (6 weeks restriction) 9. Activities such as wood chopping with an axe, pull-ups in the gymnasium, power lifting, arc-welding, being close to home induction cooktops will always be a problem. 10. Arm sling is only a reminder not to raise the arm above the head. You do not need to keep the arm completely immobilized. Your free to move the arm and use it and for normal activities. In case of any problems, please call [facility] [place], @ [phone], Attention: Device Clinic Device clinic follow-up in 5 days Follow-up with primary garment fitter in 2-3 months METOPROLOL SUCCINATE (ER) 100 mg @ MORNING METOPROLOL SUCCINATE (ER) 50mg @ NIGHT
--- NOTE | 2024-10-11 11:16 | P.PN ---
Progress Note - Text Patient underwent BiV ICD implantation yesterday However coming out of anesthesia/conscious sedation she was thrashing around her arms Chest x-ray revealed that the right atrial lead had been pulled up into the right atrium, upper part The ICD lead was [facility] into the right atrium The left bundle lead was in stable position and was pacing normally She did have atrial sensing and was able to track and pace the left bundle Plan was to keep her overnight and bring her back under general anesthesia for revision of the atrial and ICD lead/repositioning Discussed with the patient and family Continue home medications but increase the dose of metoprolol to 100 mg twice daily, succinate as well as add digoxin Continue all other heart failure medications Vancomycin prior to next procedure
== END 2024-10-11 12:02 | disposition home or self-care (01) | DRG 179 ==
LOC: CATHEP 11:29 → 6NMEDSUR 11:30
PROVIDERS: ADMIT Internal Medicine Clinical Cardiac Electrophysiology; ATTEND Internal Medicine Clinical Cardiac Electrophysiology
PROC: 02HK3KZ Insertion of Defibrillator Lead into Right Ventricle, Percutaneous Approach (ICD-10-PCS; principal; 2024-10-08 15:15)
PROC: 02H43KZ Insertion of Defibrillator Lead into Coronary Vein, Percutaneous Approach (ICD-10-PCS; principal; 2024-10-08 15:15)
PROC: 0JH609Z Insertion of Cardiac Resynchronization Defibrillator Pulse Generator into Chest Subcutaneous Tissue and Fascia, Open Approach (ICD-10-PCS; principal; 2024-10-08 15:15)
PROC: 02H63KZ Insertion of Defibrillator Lead into Right Atrium, Percutaneous Approach (ICD-10-PCS; principal; 2024-10-08 15:15)
PROC: 02WA3MZ Revision of Cardiac Lead in Heart, Percutaneous Approach (ICD-10-PCS; 2024-10-10)
DX: I42.8 Other cardiomyopathies (principal); I50.23 Acute on chronic systolic (congestive) heart failure; I11.0 Hypertensive heart disease with heart failure; I25.10 Atherosclerotic heart disease of native coronary artery without angina pectoris; T82.120A Displacement of cardiac electrode, initial encounter; I44.7 Left bundle-branch block, unspecified; Z79.84 Long term (current) use of oral hypoglycemic drugs; Z79.899 Other long term (current) drug therapy; Z87.891 Personal history of nicotine dependence; Z88.6 Allergy status to analgesic agent
CPT/HCPCS: 33249; 71046; 80048; 81025; 84443; 85025; 93005; 93306

== ENCOUNTER 2024-10-17 06:45 | Day surgery (SDC) | payer OTHER ==
[2024-10-15 15:10] VITALS: BMI 40.8
[~2024-10-17 06:45] MED LIST changes: -HYDROmorphone 0.5 MG/0.5 ML SYRINGE IVP PRN; +LACTATED RINGERS 1,000 ML IV SCH; +LIDOCAINE 1% (10MG/ML) FOR IV START INTRADERMA PRN; -MIDAZOLAM 2 MG/2 ML VIAL IV PRN; +VANCOMYCIN IV PER PHARMACY 1 EACH MISC MISCELLANE PRN
[2024-10-17] MEDS: IV FLUID CONTINUATION 1,000 ML IV ONE (07:08)
[2024-10-17] MEDS: VANCOMYCIN 2,000 MG in SODIUM CHLORIDE 0.9% 500 ML 500 ML IVPB ONE (07:22)
[2024-10-17] MEDS: SODIUM CHLORIDE 0.9% 1,000 ML IV SCH (07:49)
[2024-10-17 07:52] LABS: Glucose,Whole Blood 128 mg/dL (70-110)
[2024-10-17] MEDS ORDERED: ROCURONIUM 10 MG/ML (5 ML VIAL) IV ONE (10:34)
[2024-10-17] MEDS ORDERED: NEOSTIGMINE 1 MG/ML 10 ML VIAL ONE (10:34)
[2024-10-17] MEDS ORDERED: GLYCOPYRROLATE 0.2 MG/ML 2 ML VIAL ONE (10:34)
[2024-10-17] MEDS ORDERED: SUCCINYLCHOLINE CHLORIDE 200 MG/10 ML VIAL IV ONE (10:34)
[2024-10-17] MEDS ORDERED: HYDROmorphone (PF) 1 MG/ML ONE (10:34)
[2024-10-17] MEDS ORDERED: PHENYLEPHRINE 10 MG/ML VIAL ONE (10:34)
[2024-10-17] MEDS ORDERED: fentaNYL (PF) 50 MCG/ML 2 ML AMP ONE (10:34)
[2024-10-17] MEDS ORDERED: LIDOCAINE 1% INJ 10MG/ML (20 ML MDV) ONE (10:34)
[2024-10-17] MEDS ORDERED: MIDAZOLAM 2 MG/2 ML VIAL ONE (10:34)
[2024-10-17] MEDS ORDERED: PROPOFOL 10 MG/ML 20 ML VIAL IV ONE (10:34)
[2024-10-17] MEDS ORDERED: ePHEDrine 50 MG/ML 1 ML VIAL ONE (10:34)
[2024-10-17] MEDS: ceFAZolin 2 GM in DEXTROSE 5% IN WATER 50 ML IVPB PRN (11:25)
[2024-10-17] MEDS: LIDOCAINE 1% INJ 10MG/ML (20 ML MDV) SQ ONE (11:31)
[2024-10-17] MEDS: ceFAZolin 1 GM in SODIUM CHLORIDE 0.9% IRRIG BTL 250 ML IRRIGATION PRN (11:33)
[2024-10-17] MEDS ORDERED: ACETAMINOPHEN TAB 325 MG TAB PO PRN (13:29)
--- NOTE | 2024-10-17 13:50 | P.EPPROC ---
- EP Procedure Note Electrophysiology Procedure Note: Procedure Extraction of the dislodged screw in the right atrial lead Implantation of a jacqueline/passive right atrial lead successfully in the right atrial appendage with excellent stability, sensing and pacing threshold Attempted implantation of a August bundle lead but the sheath was too short and would not reach the high septal aspect of the right atrium, sheath did not provide adequate support to the lead due to its relatively short in length, relative to her right atrial size venogram left upper extremity Details Patient was brought to the EP lab in a fasting state. Written informed consent was obtained prior to the procedure IV vancomycin was administered first. Gene ral anesthesia was provided. Intraoperatively Was Given. An Incision Was Made Directly of the Previous Surgical Site. The Edges Were Shaved off to Remove the Prior Sutures The Pocket Was Accessed Washed the Device Was Explanted Leads Were Interrogated. The ICD Lead in the Left Bundle Lead Were Functioning Completely Normally with Stable Parameters The Dislodged Atrial Lead Was Unscrewed and with Mechanical Traction and Counterclockwise Rotation, It Was Successfully Removed from the Central Circulation. An encircling suture was applied at this access site to minimize backbleeding into the pocket. A New Venous Access was obtained and an 8 [place] sheath was placed. Initially August bundle sheath along with the 59 cm lead was placed in the right atrium. However despite multiple attempts and rotations the August sheath could not reach the high septal aspect of the right atrium. Then the roof area was targeted and while the lead was screwed in with excellent parameters of sensing and a very good current of injury, during sheath withdrawal, the closure of the sheath resulted in excessive traction at the lead tip. Multiple different sites were attempted but they were deemed suboptimal and while removing the sheath the lead configuration would change, risking future dislodgment. Therefore this lead was extracted. A jacqueline Medtronic atrial lead, model #4574 and 53 cm in length was then placed in the right atrium and in excellent position was obtained within the right atrial appendage with P waves between 7 to 8 mV, pacing impedance 532 ohms pacing threshold less than 0.5 V at 0.4 ms and excellent stability. The lead was carefully sutured while continuously interrogating the parameters. Pacing parameters sensing parameters remained completely stable and fluoroscopic images on multiple occasions showed excellent position The ICD lead was interrogated. R waves 13 mV, pacing impedance 361 ohms, high- voltage impedance 69 ohms and pacing threshold 1 V at 0.4 ms Left bundle lead was interrogated pacing impedance 418 ohms pacing threshold less than 0.5 V at 0.4 ms. Paced QRS of right bundle branch block type with an activation time in lead V6 of 60 ms The atrial lead was secured. Lead position and atrial lead function were reconfirmed and reevaluated The pocket was irrigated with antibiotic solution. A new antibiotic pouch was placed. The wound was closed in 4 layers and dressed protocol Interrogation of the leads after closure showed stable parameters Patient Toller the procedure well without any acute complications Plan Continue metoprolol succinate at least 100 mg twice daily and if she can tolerate a higher dose then increase the dose further Continue digoxin Continue Entresto Continue Farxiga and spironolactone
[2024-10-17] MEDS: ONDANSETRON 4 MG/2 ML VIAL IVP STA (14:26)
[2024-10-17] MEDS: ACETAMINOPHEN IV (For NPO) 1,000 MG in EMPTY BAG 1 BAG IVPB ONE (14:41)
--- NOTE | 2024-10-17 16:17 | XR ---
EXAMINATION TYPE: XR chest 1V portable DATE OF EXAM: 10/17/2024 4:01 PM COMPARISON: Chest radiographs from 10/09/2024. CLINICAL INDICATION: Female, 34 years old with history of Lead placement check; TECHNIQUE: XR chest 1V portable Frontal view of the chest. FINDINGS: Lungs/Pleura: There is no evidence of pleural effusion, focal consolidation, or pneumothorax. Pulmonary vascularity: Unremarkable. Heart/mediastinum: Cardiomediastinal silhouette is unremarkable. Three lead cardiac conduction device overlying the left hemithorax with lead tips projecting over the right ventricle, right atrium and c oronary sinus. Musculoskeletal: No acute osseous pathology. IMPRESSION: Cardiomegaly and mild pulmonary vascular congestion. Correlate with BNP for congestive heart failure. [facility], , 10/17/2024 4:15 PM
[2024-10-17] MEDS: ceFAZolin 2 GM in DEXTROSE 5% IN WATER 50 ML IVPB SCH (17:35)
[2024-10-17 19:41] VITALS: BP 138/88; PULSE 68; RESP 16; TEMP 98.4
[2024-10-17] MEDS: SACUBITRIL/VALSARTAN 24 MG-26 MG TABLET PO SCH (21:48)
[2024-10-17] MEDS: METOPROLOL SUCCINATE (ER) 100 MG TAB.ER.24H PO SCH (21:48)
[2024-10-18] MEDS ORDERED: SPIRONOLACTONE 25 MG TAB PO SCH (09:00)
[2024-10-18] MEDS ORDERED: DAPAGLIFLOZIN PROPANEDIOL 5 MG TABLET PO SCH (09:00)
[2024-10-18] MEDS ORDERED: DIGOXIN 125 MCG TAB PO SCH (09:00)
[2024-10-18] MEDS ORDERED: SERTRALINE 100 MG TAB PO SCH (09:00)
== END 2024-10-17 21:30 | disposition home or self-care (01) ==
LOC: CATHEP 06:45 → 6NMEDSUR 13:44 → CATHEP 21:30
PROVIDERS: ATTEND Internal Medicine Clinical Cardiac Electrophysiology
DX: I42.8 Other cardiomyopathies (principal); I44.7 Left bundle-branch block, unspecified; I11.0 Hypertensive heart disease with heart failure; I50.9 Heart failure, unspecified; F17.210 Nicotine dependence, cigarettes, uncomplicated; F41.9 Anxiety disorder, unspecified; F32.A Depression, unspecified; Z82.49 Family history of ischemic heart disease and other diseases of the circulatory system; Z95.0 Presence of cardiac pacemaker; Z88.5 Allergy status to narcotic agent; Z79.899 Other long term (current) drug therapy
CPT/HCPCS: 33215; 81025; 71045; C1898; J2250; J3370; J0330; J2710; J0690; J2405; J2003; J3010; J1171; J0131; J2704; J2371; J1596